=== PATIENT | male | born 1945 | race Caucasian/White ===

== ENCOUNTER 2022-12-06 11:15 | Observation (INO) | payer MEDICARE ==
[2022-12-06] MEDS ORDERED: Aspirin Chewable 81 MG TAB ONE (12:07)
[2022-12-06 12:41] LABS: #Basophils 0.1 10x3/uL (0.0-0.2); #Eosinphils 0.3 10x3/uL (0.0-0.5); #Monocytes 0.4 10x3/uL (0.0-1.1); #Neutrophils 4.9 10x3/uL (1.5-8.4); %Basophils 0.8 % (0.0-2.0); %Eosinophils 4.1 % (0.0-6.0); %Lymphocytes 12.8 % (18.0-47.0); %Monocytes 5.9 % (0.0-10.0); %Neutrophils 76.1 % (40.0-75.0); Hemoglobin 14.2 g/dL (13.5-17.5); Mean Corpuscular Volume 90.7 fl (81.2-95.1); Mean Platelet Volume 11.3 fl (7.4-10.4); Platelet Count 204 10x3/uL (150-450); RBC Distribution Width 12.8 % (11.5-14.5); Red Blood Cell (RBC) Count 4.74 10x6/uL (4.32-5.72); White Blood Cell (WBC) Count 6.4 10x3/uL (3.5-10.5)
[2022-12-06 12:57] LABS: ALT (SGPT) 41 U/L (8-55); AST (SGOT) 28 U/L (5-34); Albumin 4.2 g/dL (3.4-4.8); Alkaline Phosphatase 68 U/L (40-110); Anion Gap 13 mmol/L (10-20); BUN (Urea Nitrogen) 16 mg/dL (8.4-25.7); Bilirubin, Total 0.5 mg/dL (0.2-1.2); Calc. Creatinine Clearance 0 mL/min (70-130); Calcium 9.3 mg/dL (7.8-10.44); Carbon Dioxide 25 mmol/L (23-31); Chloride 109 mmol/L (98-107); Estimated GFR 82; Globulin 2.1 g/dL (2.4-3.5); Glucose 83 mg/dL (83-110); Lipase 19 U/L (8-78); Potassium 4.3 mmol/L (3.5-5.1); Protein, Total 6.3 g/dL (5.8-8.1); Sodium 143 mmol/L (136-145)
[2022-12-06] MEDS ORDERED: Communication Order-Pharmacy FS SCH (16:00)
[2022-12-06] MEDS ORDERED: Simethicone Chewable 80 MG TAB PO PRN (16:58)
[2022-12-06] MEDS ORDERED: Ondansetron PF 4 MG/2 ML Vial IVP PRN (16:59)
[2022-12-06] MEDS ORDERED: Senokot S 8.6-50 MG TAB PO PRN (16:59)
[2022-12-06] MEDS ORDERED: Ondansetron ODT 4 MG TAB PO PRN (16:59)
[2022-12-06] MEDS ORDERED: Acetaminophen 325 MG TAB PO PRN (16:59)
[2022-12-06] MEDS ORDERED: Nitroglycerin 0.4 MG TAB (25 Tab Bottle) SL PRN (16:59)
[2022-12-06] MEDS ORDERED: Electrolyte Replacement Protocol 1 EACH FS SCH (17:00)
[2022-12-06 17:11] LABS: Troponin I Less than 0.010 ng/mL (< 0.028)
[2022-12-06] MEDS ORDERED: Melatonin 3 MG TAB PO PRN (17:11)
[2022-12-06 17:41] VITALS: BMI 26.8
[2022-12-06 18:39] LABS: Troponin I Less than 0.010 ng/mL (< 0.028)
[2022-12-06] MEDS ORDERED: Non-Formulary Medication 1 EACH (Brimonidine Tartrate/Timolol [Combigan 0.2%-0.5% Eye Drop L EYE SCH (21:00)
[2022-12-06] MEDS ORDERED: Rosuvastatin 20 MG TAB PO SCH (21:00)
[2022-12-07 04:52] LABS: #Eosinphils 0.3 10x3/uL (0.0-0.5); #Monocytes 0.4 10x3/uL (0.0-1.1); #Neutrophils 2.6 10x3/uL (1.5-8.4); %Basophils 0.7 % (0.0-2.0); %Eosinophils 7.2 % (0.0-6.0); %Lymphocytes 23.1 % (18.0-47.0); %Monocytes 8.8 % (0.0-10.0); %Neutrophils 59.7 % (40.0-75.0); Hemoglobin 13.3 g/dL (13.5-17.5); Mean Corpuscular HGB CONC 33.4 g/dL (32.0-36.0); Mean Corpuscular Hemoglobin 30.4 pg (27.0-33.0); Mean Corpuscular Volume 90.9 fl (81.2-95.1); Mean Platelet Volume 10.9 fl (7.4-10.4); Platelet Count 173 10x3/uL (150-450); RBC Distribution Width 12.9 % (11.5-14.5); Red Blood Cell (RBC) Count 4.38 10x6/uL (4.32-5.72); White Blood Cell (WBC) Count 4.3 10x3/uL (3.5-10.5)
[2022-12-07 05:00] LABS: INR-International Normal Ratio 0.9; PTT 27.7 sec (22.0-33.0); Prothrombin Time 10.1 sec (9.5-12.1)
[2022-12-07 05:07] LABS: ALT (SGPT) 33 U/L (8-55); AST (SGOT) 24 U/L (5-34); Albumin 3.4 g/dL (3.4-4.8); Alkaline Phosphatase 62 U/L (40-110); Anion Gap 15 mmol/L (10-20); BUN (Urea Nitrogen) 17 mg/dL (8.4-25.7); Bilirubin, Total 0.4 mg/dL (0.2-1.2); Calc. Creatinine Clearance 74 mL/min (70-130); Calcium 8.7 mg/dL (7.8-10.44); Carbon Dioxide 21 mmol/L (23-31); Cardiac Risk 2.2 (Less than 4.5); Chloride 112 mmol/L (98-107); Cholesterol 136 mg/dl (< 200 Desired); Estimated GFR 76; Globulin 2.1 g/dL (2.4-3.5); Glucose 100 mg/dL (83-110); HDL Cholesterol 61 mg/dL (>60 Neg Risk); LDL Cholesterol, Calculated 66 mg/dL; Magnesium 1.9 mg/dL (1.6-2.6); Potassium 4.1 mmol/L (3.5-5.1); Protein, Total 5.5 g/dL (5.8-8.1); Sodium 144 mmol/L (136-145); Triglycerides 47 mg/dL (Less than 150)
[2022-12-07] MEDS ORDERED: Magnesium 2 GM/50 ML(in water) 2 GM in Premix Bag 1 BAG IVPB SCH (08:00)
[2022-12-07] MEDS ORDERED: Lidocaine 1% (PF) 30 ML VIAL ONE (08:30)
[2022-12-07] MEDS ORDERED: Heparin 10,000 UNITS/ 10 ML VIAL ONE (08:30)
[2022-12-07] MEDS ORDERED: Iopamidol 300 61% 100 ML VIAL FS ONE (08:57)
[2022-12-07] MEDS ORDERED: Aspirin 81 mg Enteric Coated Tablet PO SCH (09:00)
[2022-12-07] MEDS ORDERED: Tamsulosin HCl 0.4 MG CAP PO SCH (09:00)
[2022-12-07] MEDS ORDERED: Midazolam HCl 2 mg/2 ml Vial ONE (09:31)
[2022-12-07] MEDS ORDERED: Fentanyl 100 MCG/2 ML VIAL ONE (09:31)
[2022-12-07] MEDS ORDERED: Sodium Chloride 0.9% 200 ML IV PRN (10:25)
[2022-12-07] MEDS ORDERED: Nitroglycerin 0.4 MG TAB (25 Tab Bottle) SL PRN (10:25)
[2022-12-07] MEDS ORDERED: Acetaminophen/Codeine 30-300mg Tablet PO PRN ×2 (10:25)
[2022-12-07 18:20] VITALS: BP 116/61; TEMP 98
== END 2022-12-07 18:20 | disposition home or self-care (01) ==
LOC: CSHERS 11:15 → CSHTELE 16:38
PROVIDERS: ADMIT Internal Medicine; ATTEND Family Medicine
DX: I25.10 Atherosclerotic heart disease of native coronary artery without angina pectoris (principal); R07.2 Precordial pain; E78.5 Hyperlipidemia, unspecified; C61 Malignant neoplasm of prostate; I10 Essential (primary) hypertension; Z79.82 Long term (current) use of aspirin; Z79.899 Other long term (current) drug therapy; Z95.1 Presence of aortocoronary bypass graft
CPT/HCPCS: 71045; 80053; 80061; 83690; 83735; 84484 ×2; 85025; 85610; 85730; 93005; 93306; 93459; 94760; 99285; C1769; C1887; C1894; G0378 ×3; 36415; 84443; 99152; J1644; J2001; J2250; J3010; J3475; Q9967